=== PATIENT | male | born 1975 ===

== ENCOUNTER 2017-08-15 14:05 | Emergency (ER) | payer BC ==
[~2017-08-15] VITALS: Ht 180.3 cm; Wt 74.8 kg
--- NOTE | 2017-08-15 15:28 | NUR ---
Patient discharged to home in stable conditon. Written and verbal after care instructions given. Patient verbalizes understanding of instructions. Stressed follow up or return to ER for worsening s/s.
[2017-08-15] MEDS ORDERED: KETOROLAC TROMETHAMINE 30 MG INJ IM ONE (15:30)
[2017-08-15] MEDS ORDERED: SULFAMETH/TRIMETH 800/160 MG TABLET PO ONE (15:30)
[2017-08-15] MEDS ORDERED: KETOROLAC TROMETHAMINE 30 MG INJ ONE (15:37)
[2017-08-15] MEDS ORDERED: SULFAMETH/TRIMETH 800/160 MG TABLET ONE (15:37)
== END 2017-08-15 15:29 | disposition home or self-care (01) ==
LOC: ER 14:09
DX: L03.113 Cellulitis of right upper limb (principal)
CPT/HCPCS: 73110; A4663; J1885